=== PATIENT | male | born 1985 | race African-American/Black ===

== ENCOUNTER 2018-07-15 20:33 | Emergency (ER) | payer OTHER ==
--- NOTE | 2018-07-15 21:49 | ED ---
General Adult HPI - General Source: patient, RN notes reviewed, old records reviewed Mode of arrival: ambulatory Limitations: no limitations <Danny Tucker - Last Filed: 07/15/18 23:57> <Barbara Schneider - Last Filed: 07/16/18 04:08> - General Chief complaint: Extremity Problem,Nontraumatic Stated complaint: Foot pain - History of Present Illness Initial comments: 32-year-old male patient past medical history of tinea pedis presents to ED with 2 year complaint of irritation of left foot between web of his great and first toe. Patient also has some pain of his little toe on left foot. Patient states that he was last seen for this approximately 3 years ago in ED when he received an antifungal that resolved the symptoms. Patient denies any other complaints. Systemic: Pt denies fatigue, myalgia, fever/chills, rash. Pt denies weakness, night sweats, weight loss. Neuro: Pt denies headache, visual disturbances, syncope or pre-syncope. HEENT: Pt denies ocular discharge or irritation, otalgia, rhinorrhea, pharyngitis or notable lymphadenopathy. Cardiopulmonary: Pt denies chest pain, SOB, heart palpitations, dyspnea on exertion. Abdominal/GI: Pt denies abdominal pain, n/v/d. : Pt denies dysuria, burning w/ urination, frequency/urgency. Denies new onset urinary or bowel incontinence. MSK: Pt denies myalgia, loss of strength or function in extremities. Neuro: Pt denies new onset weakness, paresthesias. (Danny Tucker) - Related Data Previous Rx's Medication Instructions Recorded Acetaminophen with Codeine 1 each PO Q4H #20 tab 05/09/16 [Tylenol w/codeine #3] Ibuprofen [Motrin] 800 mg PO Q6HR PRN #20 tab 05/09/16 Clotrimazole [Clotrimazole 1% Top 1 applic TOPICAL Q24HR 14 Days #1 07/15/18 Soln] tube Allergies Allergy/AdvReac Type Severity Reaction Status Date / Time No Known Allergies Allergy Verified 07/15/18 20:39 Review of Systems ROS Other: All systems not noted in ROS Statement are negative. <Danny Tucker - Last Filed: 07/15/18 23:57> ROS Other: All systems not noted in ROS Statement are negative. <Barbara Schneider P - Last Filed: 07/16/18 04:08> ROS Statement: Those systems with pertinent positive or pertinent negative responses have been documented in the HPI. Past Medical History Past Medical History: No Reported History History of Any Multi-Drug Resistant Organisms: None Reported Past Surgical History: No Surgical Hx Reported Past Psychological History: No Psychological Hx Reported Smoking Status: Current every day smoker Past Alcohol Use History: Daily Past Drug Use History: Marijuana <Danny Tucker - Last Filed: 07/15/18 23:57> General Exam Limitations: no limitations <Danny Tucker - Last Filed: 07/15/18 23:57> <Barbara Schneider P - Last Filed: 07/16/18 04:08> - General Exam Comments Initial Comments: Constitutional: NAD, AOX3, Pt has pleasant affect. HEENT: NC/AT, trachea midline, neck supple, no lymphadenopathy. Posterior pharynx non erythematous, without exudates. External ears appear normal, without discharge. Mucous membranes moist. Eyes PERRLA, EOM intact. There is no scleral icterus. No pallor noted. Cardiopulmonary: RRR, no murmurs, rubs or gallops, no JVD noted. Lungs CTAB in anterior and posterior rivers. No peripheral edema. Abdominal exam: Abdomen soft and non-distended. Abdomen non-tender to palpation in all 4 quadrants. Bowel sounds active in LLQ. No hepatosplenomegaly. No ecchymosis Neuro: CN II-XII grossly intact. No nuchal rigidity. MSK: Scaly fungal infection of left foot in the interweb between the great and second toe. Scaly fungal infection of little toe of left foot. No other abnormal findings in podiatry exam. No posterior calf tenderness bilaterally, homans sign negative bilaterally. Posterior tibialis and radial pulse +2 bilaterally. Sensation intact in upper and lower extremities. Full active ROM in upper and lower extremities, 5/5 stregnth. (Danny Tucker) Vital Signs 07/15/18 07/15/18 20:36 23:20 Temperature 98.2 F 97.5 F L Pulse Rate 67 75 Respiratory 16 18 Rate Blood Pressure 106/64 127/68 O2 Sat by Pulse 100 98 Oximetry Medical Decision Making <Danny Tucker - Last Filed: 07/15/18 23:57> <Barbara Schneider - Last Filed: 07/16/18 04:08> - Medical Decision Making 32-year-old male patient past medical history of tinea pedis presents to ED with 2 year complaint of irritation of left foot between web of his great and first toe. Patient also has some pain of his little toe on left foot. Patient states that he was last seen for this approximately 3 years ago in ED when he received an antifungal that resolved the symptoms. Patient denies any other complaints. Physical exam displayed Scaly fungal infection of left foot in the interweb between the great and second toe. Scaly fungal infection of little toe of left foot. No other abnormal findings in podiatry exam. Sensation intact in feet bilaterally. Plain film of foot did not display acute process. Patient diagnosed with tinea pedis. Patient prescribed antifungal topical ointment. Patient to follow up with PCP in 1-2 days. Patient to return to ED if new symptoms develop or if symptoms worsen in anyway. Case discussed with Dr. Schneider. (Danny Tucker) I was available for consultation in the emergency department. The history and physical exam were done by the midlevel provider. I was consulted for this patient's care. I reviewed the case with the midlevel provider and based on their presentation of the patient, I agree with the assessment, medical decision making and plan of care as documented. (Barbara Schneider) Disposition Is patient prescribed a controlled substance at d/c from ED?: No Time of Disposition: 23:06 <Danny Tucker - Last Filed: 07/15/18 23:57> <Barbara Schneider - Last Filed: 07/16/18 04:08> Clinical Impression: Tinea pedis Disposition: HOME SELF-CARE Condition: Good Instructions: Athlete's Foot (ED) Additional Instructions: Patient to adhere to previously discussed treatment plan and will take medication(s) as directed. Patient to follow up with PCP in 1-2 days. Patient to return to ED if symptoms do not improve. Prescriptions: Clotrimazole [Clotrimazole 1% Top Soln] 1 applic TOPICAL Q24HR 14 Days #1 tube Referrals: None,Stated [Primary Care Provider] - 1-2 days
--- NOTE | 2018-07-15 22:10 | XR ---
EXAMINATION TYPE: XR foot complete LT DATE OF EXAM: 07/15/2018 COMPARISON: 04/10/2014 HISTORY: Pain TECHNIQUE: 3 views FINDINGS: Metatarsals are intact. I see no fracture nor dislocation. Joint spaces are fairly normal. IMPRESSION: Negative left foot exam.
[2018-07-15 23:23] VITALS: BP 127/68; PULSE 75; RESP 18; TEMP 97.5
== END 2018-07-15 23:20 | disposition home or self-care (01) ==
LOC: EC 20:33
DX: B35.3 Tinea pedis (principal); F17.200 Nicotine dependence, unspecified, uncomplicated
CPT/HCPCS: 99284

== ENCOUNTER 2021-02-02 13:22 | Emergency (ER) | payer OTHER ==
[2021-02-02 13:30] VITALS: TEMP 97.9
[2021-02-02] MEDS ORDERED: MECLIZINE 12.5 MG TAB PO STA (15:05)
[2021-02-02] MEDS ORDERED: SODIUM CHLORIDE 0.9% 1,000 ML IV STA (15:05)
--- NOTE | 2021-02-02 15:11 | ED ---
Dizziness HPI - General Chief Complaint: Dizziness Stated Complaint: Dizziness Source: patient, RN notes reviewed, old records reviewed Mode of arrival: ambulatory Limitations: no limitations - History of Present Illness Initial Comments: 35-year-old pleasant black male patient, alert and oriented 4, presents to the emergency room with complaints of dizziness that started on Saturday. Patient states that he also had dizziness on Saturday was better on Saturday but worse today. Patient states that when he turns his head left or right it makes it worse. He states that he does occasionally have a occipital headache but it is gone at this time. He denies any visual changes. Patient is a half pack a day smoker and does drink a half a pint of abdullahi a day. Patient does not take any medication on a daily basis. He denies any fevers, nausea vomiting or diarrhea. MD Complaint: dizziness -: days(s) (3) Timing: gradual onset Description: "room spinning" History of Same: No History of Trauma: No Severity: mild Improves With: remaining still Worsens With: movement (Movement of head left or right) Associated Symptoms: denies other symptoms - Related Data Previous Rx's Medication Instructions Recorded Acetaminophen with Codeine 1 each PO Q4H #20 tab 05/09/16 [Tylenol w/codeine #3] Ibuprofen [Motrin] 800 mg PO Q6HR PRN #20 tab 05/09/16 Clotrimazole [Clotrimazole 1% Top 1 applic TOPICAL Q24HR 14 Days #1 07/15/18 Soln] tube Meclizine [Antivert] 25 mg PO TID PRN #15 tab 02/02/21 Allergies Allergy/AdvReac Type Severity Reaction Status Date / Time No Known Allergies Allergy Verified 02/02/21 13:31 Review of Systems ROS Statement: Those systems with pertinent positive or pertinent negative responses have been documented in the HPI. ROS Other: All systems not noted in ROS Statement are negative. Past Medical History Past Medical History: No Reported History History of Any Multi-Drug Resistant Organisms: None Reported Past Surgical History: No Surgical Hx Reported Past Psychological History: No Psychological Hx Reported Smoking Status: Current every day smoker Past Alcohol Use History: Daily Past Drug Use History: Marijuana General Exam Limitations: no limitations General appearance: alert, in no apparent distress Head exam: Present: atraumatic, normocephalic, normal inspection Eye exam: Present: normal appearance, PERRL, EOMI, scleral icterus. Absent: conjunctival injection, nystagmus, periorbital swelling, periorbital tenderness Pupils: Present: normal accommodation ENT exam: Present: normal exam, normal oropharynx, mucous membranes moist, TM's normal bilaterally Expanded Ear exam: Present: normal external inspection. Absent: auricular hematoma, auricular trauma Mouth exam: Present: normal external inspection, tongue normal, tongue elevation. Absent: drooling, trismus, muffled voice, laceration Teeth exam: Present: dental caries Throat exam: normal inspection. negative: tonsillar erythema, tonsillar exudate, R peritonsillar mass, L peritonsillar mass Neck exam: Present: normal inspection, full ROM. Absent: tenderness, meningismus, lymphadenopathy, thyromegaly Expanded Neck exam: Present: tenderness (Paraspinal tenderness). Absent: midline deformity, anterior neck swelling, thyroid mass, carotid bruit, tracheal deviation Respiratory exam: Present: normal lung sounds bilaterally. Absent: respiratory distress, wheezes, rales, rhonchi, stridor, chest wall tenderness, accessory muscle use, decreased breath sounds, prolonged expiratory Cardiovascular Exam: Present: regular rate, normal rhythm, normal heart sounds. Absent: systolic murmur, diastolic murmur, rubs, gallop, clicks GI/Abdominal exam: Present: soft, normal bowel sounds. Absent: distended, tenderness, guarding, rebound, rigid Extremities exam: Present: normal inspection, full ROM, normal capillary refill. Absent: tenderness, pedal edema, joint swelling, calf tenderness Back exam: Present: normal inspection, full ROM, paraspinal tenderness. Absent: tenderness, CVA tenderness (R), CVA tenderness (L), muscle spasm, vertebral tenderness, rash noted (Cervical spine) Neurological exam: Present: alert, oriented X3, CN II-XII intact, other (Positive Delmar-Hallpike to the left, exacerbated patient's dizziness made him feel like he was going to fall) Expanded Patient oriented to: Present: person, place, time Speech: Present: fluid speech Cranial nerves: EOM's Intact: Normal, Gag Reflex: Normal, Tongue Deviation: Normal Cerebellar function: Finger to Nose: Normal Motor strength exam: RUE: 5, LUE: 5, RLE: 5, LLE: 5 Eye Response: (4) open spontaneously Motor Response: (6) obeys commands Verbal Response: (5) oriented [place] Total: 15 Psychiatric exam: Present: normal affect, normal mood, flat affect Skin exam: Present: warm, dry, intact, normal color. Absent: rash Course Vital Signs 02/02/21 13:27 Temperature 97.9 F Pulse Rate 81 Respiratory 20 Rate Blood Pressure 105/70 O2 Sat by Pulse 100 Oximetry EKG Findings - EKG Results: EKG: WNL (Ventricular rate of 75, IL interval 0.140, QRS of 0.86, QTC of 0.413) Medical Decision Making - Medical Decision Making Ammonia is less than 9, potassium is 4.2 and magnesium is 2.2, glucose is 71 and patient was given juice. Hemoglobin and hematocrit is 13 and 42 respectively, WBC count is 4.6. Patient was given 1 L IV fluid normal saline and Antivert states that it has relieved his symptoms. Patient is ready to be discharged home. He was directed to take Antivert as needed for dizziness symptoms only. Follow-up with primary care doctor in 1 week and to take a multivitamin daily with assignment that she has likely depleted with excessive alcohol use. Pat ient directed to contact [facility] with help with alcoholism if desired. Patient asked that I speak with his uncle on the phone which I did inform the patient explained this diagnosis. He denies pain at this time will be discharged home with vital signs stable. - Lab Data Result diagrams: 02/02/21 14:52 02/02/21 14:52 Lab Results 02/02/21 02/02/21 02/02/21 Range/Units 14:52 14:52 14:52 WBC 4.6 (3.8-10.6) k/uL RBC 4.74 (4.30-5.90) m/uL Hgb 13.6 (13.0-17.5) gm/dL Hct 43.2 (39.0-53.0) % MCV 91.2 (80.0-100.0) fL MCH 28.6 (25.0-35.0) pg MCHC 31.4 (31.0-37.0) g/dL RDW 12.7 (11.5-15.5) % Plt Count 260 (150-450) k/uL MPV 6.5 Neutrophils % 43 % Lymphocytes % 46 % Monocytes % 5 % Eosinophils % 2 % Basophils % 1 % Neutrophils # 2.0 (1.3-7.7) k/uL Lymphocytes # 2.1 (1.0-4.8) k/uL Monocytes # 0.2 (0-1.0) k/uL Eosinophils # 0.1 (0-0.7) k/uL Basophils # 0.1 (0-0.2) k/uL Sodium 140 (137-145) mmol/L Potassium 4.2 (3.5-5.1) mmol/L Chloride 106 (98-107) mmol/L Carbon Dioxide 28 (22-30) mmol/L Anion Gap 6 mmol/L BUN 12 (9-20) mg/dL Creatinine 0.82 (0.66-1.25) mg/dL Est GFR (CKD-EPI)AfAm >90 (>60 ml/min/1.73 sqM) Est GFR (CKD-EPI)NonAf >90 (>60 ml/min/1.73 sqM) Glucose 71 L (74-99) mg/dL Calcium 9.8 (8.4-10.2) mg/dL Magnesium 2.2 (1.6-2.3) mg/dL Total Bilirubin 0.5 (0.2-1.3) mg/dL AST 37 (17-59) U/L ALT 25 (4-49) U/L Alkaline Phosphatase 71 (38-126) U/L Ammonia (<30) umol/L Troponin I <0.012 (0.000-0.034) ng/mL Total Protein 7.1 (6.3-8.2) g/dL Albumin 4.4 (3.5-5.0) g/dL 02/02/21 Range/Units 15:28 WBC (3.8-10.6) k/uL RBC (4.30-5.90) m/uL Hgb (13.0-17.5) gm/dL Hct (39.0-53.0) % MCV (80.0-100.0) fL MCH (25.0-35.0) pg MCHC (31.0-37.0) g/dL RDW (11.5-15.5) % Plt Count (150-450) k/uL MPV Neutrophils % % Lymphocytes % % Monocytes % % Eosinophils % % Basophils % % Neutrophils # (1.3-7.7) k/uL Lymphocytes # (1.0-4.8) k/uL Monocytes # (0-1.0) k/uL Eosinophils # (0-0.7) k/uL Basophils # (0-0.2) k/uL Sodium (137-145) mmol/L Potassium (3.5-5.1) mmol/L Chloride (98-107) mmol/L Carbon Dioxide (22-30) mmol/L Anion Gap mmol/L BUN (9-20) mg/dL Creatinine (0.66-1.25) mg/dL Est GFR (CKD-EPI)AfAm (>60 ml/min/1.73 sqM) Est GFR (CKD-EPI)NonAf (>60 ml/min/1.73 sqM) Glucose (74-99) mg/dL Calcium (8.4-10.2) mg/dL Magnesium (1.6-2.3) mg/dL Total Bilirubin (0.2-1.3) mg/dL AST (17-59) U/L ALT (4-49) U/L Alkaline Phosphatase (38-126) U/L Ammonia <9 (<30) umol/L Troponin I (0.000-0.034) ng/mL Total Protein (6.3-8.2) g/dL Albumin (3.5-5.0) g/dL Disposition Clinical Impression: Vertigo Disposition: HOME SELF-CARE Condition: Good Instructions (If sedation given, give patient instructions): Vertigo (ED) Additional Instructions: Take Antivert as needed for dizziness. Also take a multivitamin with thiamine daily. Return to the emergency room with severe headache, inability to ambulate, fever or worsening symptoms. Follow-up with [facility] if desired for alcoholism. Prescriptions: Meclizine [Antivert] 25 mg PO TID PRN #15 tab PRN Reason: Vertigo Is patient prescribed a controlled substance at d/c from ED?: No Referrals: None,Stated [Primary Care Provider] - 1-2 days Elva Portillo MD [REFERRING] - 1-2 days Time of Disposition: 17:20
[2021-02-02 15:18] LABS: Basophils # (A) 0.1 k/uL (0-0.2); Basophils % (A) 1 %; Eosinophils # (A) 0.1 k/uL (0-0.7); Eosinophils % (A) 2 %; HCT 43.2 % (39.0-53.0); HGB 13.6 gm/dL (13.0-17.5); Lymphocytes # (A) 2.1 k/uL (1.0-4.8); Lymphocytes % (A) 46 %; MCH 28.6 pg (25.0-35.0); MCHC 31.4 g/dL (31.0-37.0); MCV 91.2 fL (80.0-100.0); Mean Platelet Volume 6.5; Monocytes # (A) 0.2 k/uL (0-1.0); Monocytes % (A) 5 %; Neutrophils % (A) 43 %; Platelet Count 260 k/uL (150-450); RBC 4.74 m/uL (4.30-5.90); RDW 12.7 % (11.5-15.5); WBC 4.6 k/uL (3.8-10.6)
[2021-02-02 15:27] LABS: ALT 25 U/L (4-49); AST 37 U/L (17-59); African American GFR (CKD) >90 (>60 ml/min/1.73 sqM); Albumin 4.4 g/dL (3.5-5.0); Alkaline Phosphatase 71 U/L (38-126); Anion Gap 6 mmol/L; Blood Urea Nitrogen 12 mg/dL (9-20); Calcium 9.8 mg/dL (8.4-10.2); Carbon Dioxide 28 mmol/L (22-30); Chloride 106 mmol/L (98-107); Glucose 71 mg/dL (74-99); Magnesium 2.2 mg/dL (1.6-2.3); Non-African American GFR(CKD) >90 (>60 ml/min/1.73 sqM); Potassium 4.2 mmol/L (3.5-5.1); Sodium 140 mmol/L (137-145); Total Bilirubin 0.5 mg/dL (0.2-1.3); Total Protein 7.1 g/dL (6.3-8.2)
[2021-02-02 17:36] VITALS: BP 136/76; PULSE 67; RESP 16
== END 2021-02-02 17:36 | disposition home or self-care (01) ==
LOC: EC 13:22
DX: R42 Dizziness and giddiness (principal); R51.9 Headache, unspecified; F17.210 Nicotine dependence, cigarettes, uncomplicated; F12.90 Cannabis use, unspecified, uncomplicated
CPT/HCPCS: 36415; 80053; 82140; 83735; 84484; 85025; 93005; 96360; 99284

== ENCOUNTER 2021-05-25 22:48 | Emergency (ER) | payer OTHER ==
[2021-05-25 23:01] VITALS: BP 117/70; PULSE 105; RESP 16; TEMP 98.5
--- NOTE | 2021-05-25 23:07 | ED ---
Psych HPI - General Chief Complaint: Psychiatric Symptoms Stated Complaint: Petition Time Seen by Provider: 05/25/21 23:04 Source: patient, police, RN notes reviewed, old records reviewed Mode of arrival: ambulatory Limitations: no limitations - History of Present Illness Initial Comments: This is a 35-year-old male brought in by PD a patient is angry making possible suicidal or homicidal comments. Patient's petition by PD for psychiatric evaluation. Patient denies homicidal or suicidal thoughts was feeling hostile does admit to doing meth and drinking alcohol today MD Complaint: suicidal ideation, feels depressed, altered mental status -: unknown Associated Psychiatric Symptoms: racing thoughts History of same: No Quality: intermittent, resolved prior to arrival Improves With: none Worsens With: none Context: recent alcohol abuse, recent drug abuse Associated Symptoms: confusion Treatments Prior to Arrival: placed on mental health hold If Self Harm: has plan - Related Data Previous Rx's Medication Instructions Recorded Acetaminophen with Codeine 1 each PO Q4H #20 tab 05/09/16 [Tylenol w/codeine #3] Ibuprofen [Motrin] 800 mg PO Q6HR PRN #20 tab 05/09/16 Clotrimazole [Clotrimazole 1% Top 1 applic TOPICAL Q24HR 14 Days #1 07/15/18 Soln] tube Meclizine [Antivert] 25 mg PO TID PRN #15 tab 02/02/21 Allergies Allergy/AdvReac Type Severity Reaction Status Date / Time No Known Allergies Allergy Verified 05/25/21 22:55 Review of Systems ROS Statement: Those systems with pertinent positive or pertinent negative responses have been documented in the HPI. ROS Other: All systems not noted in ROS Statement are negative. Past Medical History Past Medical History: No Reported History History of Any Multi-Drug Resistant Organisms: None Reported Past Surgical History: No Surgical Hx Reported Past Psychological History: No Psychological Hx Reported Smoking Status: Current every day smoker Past Alcohol Use History: Daily Past Drug Use History: Marijuana General Exam Limitations: physical limitation General appearance: alert, in no apparent distress Head exam: Present: atraumatic, normocephalic, normal inspection Eye exam: Present: normal appearance, PERRL, EOMI. Absent: scleral icterus, c onjunctival injection, periorbital swelling ENT exam: Present: normal exam, mucous membranes moist Neck exam: Present: normal inspection. Absent: tenderness, meningismus, lymphadenopathy Respiratory exam: Present: normal lung sounds bilaterally. Absent: respiratory distress, wheezes, rales, rhonchi, stridor Cardiovascular Exam: Present: regular rate, normal rhythm, normal heart sounds. Absent: systolic murmur, diastolic murmur, rubs, gallop, clicks GI/Abdominal exam: Present: soft, normal bowel sounds. Absent: distended, tenderness, guarding, rebound, rigid Extremities exam: Present: normal inspection, full ROM, normal capillary refill. Absent: tenderness, pedal edema, joint swelling, calf tenderness Back exam: Present: normal inspection Neurological exam: Present: alert, oriented X3, CN II-XII intact Psychiatric exam: Present: normal affect, normal mood Skin exam: Present: warm, dry, intact, normal color. Absent: rash Course Vital Signs 05/25/21 22:55 Temperature 98.5 F Pulse Rate 105 H Respiratory 16 Rate Blood Pressure 117/70 O2 Sat by Pulse 98 Oximetry - Reevaluation(s) Reevaluation #1: 05/26/21 02:23 Medical record is reviewed 05/26/21 02:23 Medical clear for psychiatric evaluation Medical Decision Making - Medical Decision Making 35-year-old male seen in however psychiatry patient is stable for discharge home not currently homicidal or suicidal Disposition Clinical Impression: Acute psychosis Disposition: HOME SELF-CARE Condition: Good Instructions (If sedation given, give patient instructions): Brief Psychotic Disorder (ED) Is patient prescribed a controlled substance at d/c from ED?: No Referrals: None,Stated [Primary Care Provider] - 1-2 days
== END 2021-05-26 03:24 | disposition home or self-care (01) ==
LOC: EC 22:48
DX: F23 Brief psychotic disorder (principal); F17.200 Nicotine dependence, unspecified, uncomplicated; F12.90 Cannabis use, unspecified, uncomplicated
CPT/HCPCS: 82075; 99284

== ENCOUNTER 2024-07-07 09:57 | Emergency (ER) | payer OTHER ==
--- NOTE | 2024-07-07 10:22 | ED ---
General Adult HPI - General Chief complaint: Recheck/Abnormal Lab/Rx Stated complaint: dizzy/headache/fall x2 Time Seen by Provider: 07/07/24 10:10 Source: patient, RN notes reviewed Mode of arrival: ambulatory Limitations: no limitations - History of Present Illness Initial comments: This is a 38-year-old male with no significant medical history presenting to the emergency department with referral from urgent care for complaint of intermittent dizziness that he has described as feeling off balance over the past 2 days. was concerned that there was fluid behind his ear and recommended that he report for a CT scan. States that the feeling of dizziness and 'off-balance' is exacerbated upon standing and with quick movements of his head. Denies nausea, vomiting, chest pain, shortness of breath, abdominal pain. denies weakness, parasthesias, peripheral edema, headache, blurry or double vision. has not attempted to take any medication to alleviate symptoms. - Related Data Home Medications Medication Instructions Recorded Confirmed No Known Home Medications 07/07/24 07/07/24 Allergies Allergy/AdvReac Type Severity Reaction Status Date / Time No Known Allergies Allergy Verified 07/07/24 11:46 Review of Systems ROS Statement: Those systems with pertinent positive or pertinent negative responses have been documented in the HPI. ROS Other: All systems not noted in ROS Statement are negative. Past Medical History Past Medical History: No Reported History Additional Past Medical History / Comment(s): hx of cocaine abuse History of Any Multi-Drug Resistant Organisms: None Reported Past Surgical History: No Surgical Hx Reported Past Psychological History: No Psychological Hx Reported Smoking Status: Current every day smoker Past Alcohol Use History: Daily Past Drug Use History: Marijuana General Exam - General Exam Comments Initial Comments: Visual Physical Exam Vital signs reviewed General: Well-appearing, nontoxic, no acute distress. Head: Normocephalic, atraumatic Eyes: PERRLA, EOMI ENT: Airway patent Chest: Nonlabored breathing Skin: No visual rash, normal skin tone Neuro: Alert and oriented 3 Musculoskeletal: No gross abnormalities Limitations: no limitations General appearance: alert, in no apparent distress Eye exam: Present: normal appearance, PERRL, EOMI. Absent: scleral icterus, conjunctival injection, periorbital swelling ENT exam: Present: normal exam, mucous membranes moist Respiratory exam: Present: normal lung sounds bilaterally. Absent: respiratory distress, wheezes, rales, rhonchi, stridor Cardiovascular Exam: Present: regular rate, normal rhythm, normal heart sounds. Absent: systolic murmur, diastolic murmur, rubs, gallop, clicks Neurological exam: Present: alert, oriented X3, CN II-XII intact Skin exam: Present: warm, dry, intact, normal color. Absent: rash Course Vital Signs 07/07/24 07/07/24 07/07/24 10:02 11:00 12:27 Temperature 98.2 F 98.5 F Pulse Rate 81 80 Respiratory 20 16 Rate Blood Pressure 121/84 142/79 Blood Pressure 126/82 [Left Arm Sitting] Blood Pressure 148/82 [Left Arm Standing] Blood Pressure 145/81 [Left Arm] O2 Sat by Pulse 99 99 Oximetry Medical Decision Making - Medical Decision Making Was pt. sent in by a medical professional or institution (, PA, STUDIO DATA ANALYST, urgent care, hospital, or halfway...) When possible be specific @ -Patient was advised by urgent care to report to emergency department for further evaluation of intermittent dizziness Did you speak to anyone other than the patient for history (EMS, parent, family, police, friend...)? What history was obtained from this source @ -No Did you review nursing and triage notes (agree or disagree)? Why? @ -I reviewed and agree with nursing and triage notes Were old charts reviewed (outside hosp., previous admission, EMS record, old EKG, old radiological studies, urgent care reports/EKG's, halfway records)? Report findings @ -No old charts were reviewed Differential Diagnosis (chest pain, altered mental status, abdominal pain women, abdominal pain men, vaginal bleeding, weakness, fever, dyspnea, syncope, headache, dizziness, GI bleed, back pain, seizure, CVA, palpatations, mental health, musculoskeletal)? @ -Differential Dizziness: Benign paroxysmal positional Vertigo, Meniere's disease, otitis media, acoustic neuroma, vertebrobasilar insufficiency, cerebellar stroke, encephalitis, hypovolemic, arrhythmia, coronary artery syndrome, anemia, this is not meant to be an all-inclusive list EKG interpreted by me (3pts min.). @ -Completed at 1105 sinus rhythm with sinus arrhythmia, ventricular rate 67, MI 135, QRS 95, QTc 393. X-rays interpreted by me (1pt min.). @ -None done CT interpreted by me (1pt min.). @ -CT imaging of the brain was considered but deferred at this time. There is medical concern for intracranial pathology. Additionally, patient has declined CT imaging. U/S interpreted by me (1pt. min.). @ -None done What testing was considered but not performed or refused? (CT, X-rays, U/S, labs)? Why? @ -None What meds were considered but not given or refused? Why? @ -None Did you discuss the management of the patient with other professionals (professionals i.e. , PA, STUDIO DATA ANALYST, lab, RT, psych nurse, social work professor, refrigeration unit repairer, teacher, debt recovery officer, supervisor case loading)? Give summary @ -No Was smoking cessation discussed for >3mins.? @ -No Was critical care preformed (if so, how long)? @ -No Were there social determinants of health that impacted care today? How? (Homelessness, low income, unemployed, alcoholism, drug addiction, transportation, low edu. Level, literacy, decrease access to med. care, senior care, rehab)? @ -No Was there de-escalation of care discussed even if they declined (Discuss DNR or withdrawal of care, Hospice)? DNR status @ -No What co-morbidities impacted this encounter? (DM, HTN, Smoking, COPD, CAD, Cancer, CVA, ARF, Chemo, Hep., AIDS, mental health diagnosis, sleep apnea, morbid obesity)? @ -None Was patient admitted / discharged? Hospital course, mention meds given and route, prescriptions, significant lab abnormalities, going to OR and other pertinent info. @ -discharged. 38-year-old male with dizziness. Patient's vitals are stable. On my evaluation the patient is resting company no signs acute distress. Physical examination unremarkable. HIINTS exam no acute findings/deficits. Patient is provided with IVF pending lab results. EKG sinus rhythm. patient was offered further medication in attempts to alleviate dizziness that symptoms likely secondary to vertigo however has declined this time. Laboratory results are unremarkable. Patient is requesting discharge at this time. Recommend that he follow-up with his primary care provider in the next 1 to 2 days for further evaluation. All questions answered at bedside and strict return parameters have discussed with the patient is verbalized understanding. Discussed with Dr. Pena Undiagnosed new problem with uncertain prognosis? @ -No Drug Therapy requiring intensive monitoring for toxicity (Heparin, Nitro, Insulin, Cardizem)? @ -No Were any procedures done? @ -No Diagnosis/symptom? @ -dizziness Acute, or Chronic, or Acute on Chronic? @ -acute Uncomplicated (without systemic symptoms) or Complicated (systemic symptoms)? @ -uncomplicated Side effects of treatment? @ -No Exacerbation, Progression, or Severe Exacerbation? @ -No Poses a threat to life or bodily function? How? (Chest pain, [place], [place], pneumonia, PE, COPD, DKA, ARF, appy, cholecystitis, CVA, Diverticulitis, Homicidal, Suicidal, threat to staff... and all critical care pts) @ -No - Lab Data Result diagrams: 07/07/24 10:56 07/07/24 10:56 Lab Results 07/07/24 07/07/24 Range/Units 10:56 10:56 WBC 5.1 (3.8-10.6) k/uL RBC 5.22 (4.30-5.90) m/uL Hgb 15.4 (13.0-17.5) gm/dL Hct 47.2 (39.0-53.0) % MCV 90.4 (80.0-100.0) fL MCH 29.5 (25.0-35.0) pg MCHC 32.7 (31.0-37.0) g/dL RDW 13.0 (11.5-15.5) % Plt Count 293 (150-450) k/uL MPV 7.6 Neutrophils % 54 % Lymphocytes % 37 % Monocytes % 5 % Eosinophils % 2 % Basophils % 0 % Neutrophils # 2.7 (1.3-7.7) k/uL Lymphocytes # 1.9 (1.0-4.8) k/uL Monocytes # 0.3 (0-1.0) k/uL Eosinophils # 0.1 (0-0.7) k/uL Basophils # 0.0 (0-0.2) k/uL Sodium 138 (137-145) mmol/L Potassium 4.2 (3.5-5.1) mmol/L Chloride 104 (98-107) mmol/L Carbon Dioxide 31 H (22-30) mmol/L Anion Gap 3 mmol/L BUN 13 (9-20) mg/dL Creatinine 0.95 (0.66-1.25) mg/dL Est GFR (CKD-EPI)AfAm >90 (>60 ml/min/1.73 sqM) Est GFR (CKD-EPI)NonAf >90 (>60 ml/min/1.73 sqM) Glucose 84 (74-99) mg/dL Calcium 9.8 (8.4-10.2) mg/dL Magnesium 2.2 (1.6-2.3) mg/dL Total Bilirubin 0.8 (0.2-1.3) mg/dL AST 27 (17-59) U/L ALT 21 (4-49) U/L Alkaline Phosphatase 50 (38-126) U/L Total Protein 7.0 (6.3-8.2) g/dL Albumin 4.5 (3.5-5.0) g/dL Disposition Clinical Impression: Dizziness Disposition: HOME SELF-CARE Condition: Good Instructions (If sedation given, give patient instructions): Dizziness (ED) Additional Instructions: Please return to the Emergency Department if symptoms worsen or any other concerns. Is patient prescribed a controlled substance at d/c from ED?: No Referrals: None,Stated [Primary Care Provider] - 1-2 days Time of Disposition: 11:58
[2024-07-07] MEDS: SODIUM CHLORIDE 0.9% 1,000 ML IV STA (10:57)
[2024-07-07 11:07] LABS: Basophils % (A) 0 %; Eosinophils # (A) 0.1 k/uL (0-0.7); Eosinophils % (A) 2 %; HCT 47.2 % (39.0-53.0); HGB 15.4 gm/dL (13.0-17.5); Lymphocytes # (A) 1.9 k/uL (1.0-4.8); Lymphocytes % (A) 37 %; MCH 29.5 pg (25.0-35.0); MCHC 32.7 g/dL (31.0-37.0); MCV 90.4 fL (80.0-100.0); Mean Platelet Volume 7.6; Monocytes # (A) 0.3 k/uL (0-1.0); Monocytes % (A) 5 %; Neutrophils # (A) 2.7 k/uL (1.3-7.7); Neutrophils % (A) 54 %; Platelet Count 293 k/uL (150-450); RBC 5.22 m/uL (4.30-5.90); WBC 5.1 k/uL (3.8-10.6)
[2024-07-07 11:24] LABS: ALT 21 U/L (4-49); AST 27 U/L (17-59); African American GFR (CKD) >90 (>60 ml/min/1.73 sqM); Albumin 4.5 g/dL (3.5-5.0); Alkaline Phosphatase 50 U/L (38-126); Anion Gap 3 mmol/L; Blood Urea Nitrogen 13 mg/dL (9-20); Calcium 9.8 mg/dL (8.4-10.2); Carbon Dioxide 31 mmol/L (22-30); Chloride 104 mmol/L (98-107); Glucose 84 mg/dL (74-99); Magnesium 2.2 mg/dL (1.6-2.3); Non-African American GFR(CKD) >90 (>60 ml/min/1.73 sqM); Potassium 4.2 mmol/L (3.5-5.1); Sodium 138 mmol/L (137-145); Total Bilirubin 0.8 mg/dL (0.2-1.3)
[2024-07-07 12:28] VITALS: BP 142/79; PULSE 80; RESP 16; TEMP 98.5
== END 2024-07-07 12:28 | disposition home or self-care (01) ==
LOC: EC 09:57
DX: R42 Dizziness and giddiness (principal); F17.200 Nicotine dependence, unspecified, uncomplicated
CPT/HCPCS: 36415; 80053; 83735; 85025; 96360; 99284